=== PATIENT | female | born 1995 | race African-American/Black ===

== ENCOUNTER 2017-07-04 09:06 | Emergency (ER) | payer BC, MEDICAID ==
--- NOTE | 2017-07-04 11:08 | PD ---
HPI Chief Complaint Nausea, vomiting, diarrhea Travel History International Travel<30 Days: No Contact w/Intl Traveler<30Days: No Known Affected Area: No History of Present Illness HPI 21-year-old , IUP at 36.2 care complicated by obesity. The patient reports complaining of the acute onset of nausea, vomiting, and diarrhea at 6am. There are no alleviating factors and no attempted treatments. There are no aggravating factors. The patient denies ill contacts. She reports she had ribs for dinner last night and denies the recent ingestion of eggs, hamburger, or lettuce except a hamburger at [employer] yesterday for lunch. She denies any recent antibiotic use. She reports good movement. She denies any LOF or VB. She reports that since she arrived, she has noticed blood in the diarrhea. She denies any fever or chills. She reports associated abdominal cramping, but denies any regular or painful contractions. Addendum 1600: patient is feeling much better, has mild abdominal cramping but nausea and vomiting have resolved and she is able to tolerate a po challenge. Weeks Gestation: 36 Para: 0 : 1 History Past Medical History Narrative Medical Obesity Obstetric History Obstetric History Denies significant history Past Surgical History Surgical History: No Previous Surgery Family History Family History: Negative Social History Alcohol Use: No Tobacco Use: No Substance Abuse: No Allergies-Medications (Allergen,Severity, Reaction): Coded Allergies: No Known Allergies (Unverified , 03/27/15) Review of Systems Except as stated in HPI: all other systems reviewed are Neg Physical Exam Narrative GENERAL: Well-nourished, well-developed patient. SKIN: Warm and dry. HEAD: Normocephalic and atraumatic. EYES: No scleral icterus. No injection or drainage. ENT: No nasal drainage noted. Mucous membranes pink. Airway patent. NECK: Supple, trachea midline. No JVD. CARDIOVASCULAR: Regular rate and rhythm without murmurs, gallops, or rubs. RESPIRATORY: Breath sounds equal bilaterally. No accessory muscle use. BREASTS: Deferred ABDOMEN/GI: Abdomen soft, non-tender, bowel sounds present, no rebound, no guarding Gravid GENITOURINARY: External Genitalia: intact and normal in appearance. Normal EGBUS, no cervical or vaginal masses noted, Normal rugae, Physiologic discharge noted, no evidence of vaginal bleeding noted. SVE closed/50/high. No blood noted at rectum, in vagina, or on perineum FHT's: Heart tones are in the 130s with moderate long-term variability, good accelerations, and no decelerations noted with a category 1 heart rate tracing and reactive NST. EXTREMITIES: No cyanosis or edema. BACK: Nontender without obvious deformity. NEUROLOGICAL: Awake and alert. Motor and sensory grossly within normal limits. Normal speech. Musculoskeletal: grossly normal ROM, gait, muscle strength Psychiatric: grossly normal memory/affect Addendum 1600: patient had been unable to produce diarrhea stool until about 1430, results just became available a short time ago and are positive for hemoccult Data Data Orders Orders Vital Signs (Adult) .ON ADMISSION (07/04/17 11:04) ^ Labor Status (07/04/17 11:04) Urinalysis - C+S If Indicated (07/04/17 11:04) ^ Non Stress Test (07/04/17 11:04) Cbc No Diff, Includes Plts (07/04/17 11:04) Comprehensive Metabolic Panel (07/04/17 11:04) Magnesium (Mg) (07/04/17 11:05) D5-Lr (Bolus) Inj (07/04/17 11:15) Ondansetron Inj (Zofran Inj) (07/04/17 11:15) MDM Plan A/P: 1. IUP at 36.2 2. Nausea/vomiting: resolved with IVF and zofran, patient tolerated po challenge, strict N/V precautions. Normal electrolytes. so will check 3. Diarrhea: appears mucus admixed with blood, hemoccult positive, diarrhea decreased significantly since arrived without any diarrhea for 5+ hours; likely improving, although concerned due to blood/mucus so will check for enteric pathogens. The patient has no known exposure to eggs/lettuce/antibiotics and had one hamburger yesterday. Discussed with Dr. Baldwin who is in agreement with patient discharge at this time without further treatment. Strict diarrhea precautions. 4. well-being: reassuring testing with reactive NST and category 1 heart rate tracing. [facility] daily. 5. Mild leukocytosis: discussed with Dr. Baldwin, no fever/chills, fever/ chills precautions 6. No evidence of labor, strict labor precautions. 7. Follow up with primary OB in the am as scheduled or sooner if needed Diagnosis Diagnosis: Primary Impression: 34 weeks gestation of Additional Impressions: Nausea & vomiting Diarrhea Disposition: 01 DISCHARGE HOME Condition: Good Additional Instructions: F/U with Dr. Baldwin tomorrow morning as scheduled, sooner if needed. Return for fever/chills, persistent nausea/vomiting, repetitive bloody stools, or any other concerns. [facility] daily. Dara Perrin MD Jul 04, 2017 11:07
--- NOTE | 2017-07-04 11:09 | PD ---
History of Present Illness History of Present Illness NST report Indications: IUP at 36.2, nausea/vomiting/diarrhea, obesity heart rate: heart rate in the 130s with moderate long-term variability, good accelerations, no decelerations noted. The patient has a reactive NST and a category 1 heart rate tracing. Follow-up: Follow-up as clinically indicated Final diagnosis: IUP at 36.2, nausea/vomiting/diarrhea, symptomatically improved Dara Perrin MD Jul 04, 2017 11:09
[2017-07-04] MEDS ORDERED: DEXTROSE 5%-LACTATED RING INJ 1,000 ML IV ONE (11:15)
[2017-07-04] MEDS ORDERED: ONDANSETRON HCL 4 MG/2 ML VIAL IV PUSH ONE (11:15)
[2017-07-04 12:09] LABS: BACTERIA, URINE MOD /hpf; BILIRUBIN, URINE NEG (NEG); BLOOD, URINE NEG (NEG); CALCIUM OXALATE CRYSTALS,URINE RARE /hpf; GLUCOSE,URINE TRACE mg/dL (NEG); KETONE, URINE NEG (NEG); MUCUS URINE FEW /lpf (OCC); NITRITE,URINE NEG (NEG); PH, URINE 5.5 (5.0-8.5); SQUAMOUS EPITHELIAL CELL URINE 3 /hpf (0-5); URINE COLOR YELLOW (YELLW/STRAW); URINE LEUKOCYTE ESTERASE NEG (NEG)
[2017-07-04 12:15] LABS: HEMATOCRIT 35.1 % (35.0-46.0); HEMOGLOBIN 11.1 GM/DL (11.6-15.3); MEAN CELL VOLUME 73.9 FL (80.0-100.0); MEAN CORPUSCULAR HEMOGLOBIN 23.4 PG (27.0-34.0); MEAN CORPUSCULAR HGB CONC 31.6 % (32.0-36.0); MEAN PLATELET VOLUME 8.9 FL (7.0-11.0); PLATELET COUNT 290 TH/MM3 (150-450); RED BLOOD COUNT 4.75 MIL/MM3 (4.00-5.30); RED CELL DISTRIBUTION WIDTH 15.9 % (11.6-17.2); WHITE BLOOD COUNT 15.7 TH/MM3 (4.0-11.0)
[2017-07-04 12:37] LABS: ALBUMIN 2.6 GM/DL (3.4-5.0); ALT (GPT) 20 U/L (9-42); AST (GOT) 13 U/L (16-38); BICARBONATE 23.7 MEQ/L (21.0-32.0); BLOOD UREA NITROGEN 9 MG/DL (7-18); CALCIUM 8.5 MG/DL (8.5-10.1); CHLORIDE 108 MEQ/L (98-107); CREATININE 0.72 MG/DL (0.50-1.00); GLOMERULAR FILTRATION RATE 125 ML/MIN (>89); GLUCOSE,RANDOM 100 MG/DL (74-106); SODIUM (NA) 140 MEQ/L (136-145)
[2017-07-04 12:39] LABS: ALKALINE PHOSPHATASE 145 U/L (45-117); TOTAL BILIRUBIN ADULT 0.4 MG/DL (0.2-1.0); TOTAL PROTEIN 6.7 GM/DL (6.4-8.2)
[2017-07-04 12:51] VITALS: RESP 17
== END 2017-07-04 16:24 | disposition home or self-care (01) ==
LOC: HOBED 09:06
DX: O26.893 Other specified pregnancy related conditions, third trimester (principal); R11.2 Nausea with vomiting, unspecified; R19.7 Diarrhea, unspecified; R82.99 Other abnormal findings in urine; O99.213 Obesity complicating pregnancy, third trimester; Z3A.36 36 weeks gestation of pregnancy
CPT/HCPCS: 59025; 80053; 81001; 82272; 83735; 85027; 87086; 87205; 87506; 96361; 96365; 96375; 99284; J2405; J7121

== ENCOUNTER 2017-07-20 00:50 | Emergency (ER) | payer BC, MEDICAID ==
--- NOTE | 2017-07-20 01:28 | PD ---
HPI Chief Complaint Contractions Date Seen: July 20, 2017 Time Seen: 01:25 Travel History International Travel<30 Days: No Contact w/Intl Traveler<30Days: No Known Affected Area: No History of Present Illness HPI 22-year-old who is at 38 weeks gestation came to the hospital complaining of contractions for the past hour but they have since completely resolved. Patient states that she denies vaginal discharge, rupture membranes, or vaginal bleeding. She has had good movement and her last examination was stated before yesterday when she was noted to be 3 cm. Weeks Gestation: 38 Para: 0 : 1 History Past Medical History Medical History: Denies Significant Hx Past Surgical History Surgical History: No Previous Surgery Family History Family History: Negative Social History Alcohol Use: No Tobacco Use: No Substance Abuse: No Allergies-Medications (Allergen,Severity, Reaction): Coded Allergies: No Known Allergies (Unverified , 03/27/15) Review of Systems Except as stated in HPI: all other systems reviewed are Neg Physical Exam Narrative GENERAL: Well-nourished, well-developed patient. SKIN: Warm and dry. HEAD: Normocephalic and atraumatic. EYES: No scleral icterus. No injection or drainage. ENT: No nasal drainage noted. Mucous membranes pink. Airway patent. NECK: Supple, trachea midline. No JVD. CARDIOVASCULAR: Regular rate and rhythm without murmurs, gallops, or rubs. RESPIRATORY: Breath sounds equal bilaterally. No accessory muscle use. ABDOMEN/GI: Abdomen soft, non-tender, bowel sounds present, no rebound, no guarding Gravid to [38-] weeks size Fundal Height: [-] GENITOURINARY: External Genitalia: intact and normal in appearance BUS glands: [-Normal] Cervix: [-Posterior] Dilatation: [2-3-] Effacement: [-50] Station: [-High] Presentation: [-Vertex] Membranes: [intact or ruptured] intact Uterine Contractions: [-] 1 contraction since arrival FHT's: Category: [-] 1 Baseline: [-] 140 Reactive: [-] Moderate Variability: [-] Moderate Decels: [-] Absent EXTREMITIES: No cyanosis or edema. BACK: Nontender without obvious deformity. No CVA tenderness. NEUROLOGICAL: Awake and alert. Motor and sensory grossly within normal limits. Five out of 5 muscle strength in all muscle groups. Normal speech. Data Data Vital Signs Reviewed: Yes MDM Medical Record Reviewed: Yes Plan 22-year-old who is at 38 weeks gestation with false labor No contractions presently Discharge home with follow-up to her OB provider Diagnosis Diagnosis: Primary Impression: 38 weeks gestation of Additional Impression: False labor after 37 completed weeks of gestation Disposition: 01 DISCHARGE HOME Bonnie Mason MD July 20, 2017 01:28
== END 2017-07-20 01:40 | disposition home or self-care (01) ==
LOC: HOBED 00:50
DX: O47.1 False labor at or after 37 completed weeks of gestation (principal); Z3A.38 38 weeks gestation of pregnancy
CPT/HCPCS: 59025

== ENCOUNTER 2017-07-24 08:44 | Emergency (ER) | payer BC, MEDICAID ==
--- NOTE | 2017-07-24 09:19 | PD ---
HPI Chief Complaint Contractions Date Seen: July 24, 2017 Time Seen: 09:14 Travel History International Travel<30 Days: No Contact w/Intl Traveler<30Days: No Known Affected Area: No History of Present Illness HPI Patient is 22-year-old black female at [address] Pat for care and presents complaining of contraction pain, no bleeding, no leakage of fluid. NST is reactive. She is jill about every 5-6 minutes Weeks Gestation: 39 Para: 0 : 1 History Social History Alcohol Use: No Tobacco Use: No Substance Abuse: No Allergies-Medications (Allergen,Severity, Reaction): Coded Allergies: No Known Allergies (Unverified , 03/27/15) Review of Systems General / Constitutional: No: Fever, Weight Gain, Chills, Other Eyes: No: Diploplia, Blurred Vision, Visual changes, Pain, Photophobia HENT: No: Headaches, Vertigo, Lightheadedness Cardiovascular: No: Irregular Rhythm, Chest Pain or Discomfort, Palpitations, Tachycardia, Syncope, Varicosities, Edema, Cyanosis Respiratory: No: Cough, Short of Breath, Other Gastrointestinal: No: Nausea, Vomiting, Diarrhea Genitourinary: No: Decreased Urinary Output, Oliguria Musculoskeletal: No: Limited ROM, Weakness, Cramping, Edema, Pain Skin: No Rash, No Itching, No Dryness, No Lumps, No Change in Pigmentation, No Change in Nails, No Alopecia, No Lesions Neurologic: No: Weakness, Dizziness, Syncope, Focal Abnormalities, Coordination Problem, Headache, Slurred Speech, Seizures Psychiatric: No: Depression, Suicidal Ideations, Homicidal Ideation Endocrine: No: Heat Intolerance, Cold Intolerance, Polydipsia, Polyuria, Other Physical Exam Narrative GENERAL: Well-nourished, well-developed patient. SKIN: Warm and dry. HEAD: Normocephalic and atraumatic. EYES: No scleral icterus. No injection or drainage. ENT: No nasal drainage noted. Mucous membranes pink. Airway patent. NECK: Supple, trachea midline. No JVD. CARDIOVASCULAR: Regular rate and rhythm without murmurs, gallops, or rubs. RESPIRATORY: Breath sounds equal bilaterally. No accessory muscle use. BREASTS: Bilateral exam showed no masses , no retractions, no nipple discharge. ABDOMEN/GI: Abdomen soft, non-tender, bowel sounds present, no rebound, no guarding Gravid to [39-] weeks size Fundal Height: [39-] GENITOURINARY: External Genitalia: intact and normal in appearance BUS glands: [-] Cervix: [post-] Dilatation: [1-] Effacement: [60-] Station: [-3] Presentation: [-vtx] Membranes: [intact ] Uterine Contractions: [q 5 min-] FHT's: Category: [1-] Baseline: [-133] Reactive: [-R] Variability: [mod-] Decels: [-0] EXTREMITIES: No cyanosis or edema. BACK: Nontender without obvious deformity. No CVA tenderness. NEUROLOGICAL: Awake and alert. Motor and sensory grossly within normal limits. Five out of 5 muscle strength in all muscle groups. Normal speech. Data Data Group B Strep: Negative MDM Interpretation(s) Patient is a 22-year-old black female at 39 weeks presents with contractions, no bleeding, no leakage, heart rate tracing is reactive she is jill every 5 minutes. Cervix is 1/60/-3/vertex Plan Plan to discharge home to observation and return for increasing pain, bleeding, or leakage of fluid. Otherwise follow-up with her OB provider Dr. Pat Diagnosis Diagnosis: Primary Impression: Uterine contractions during Additional Impression: 39 weeks gestation of Disposition: DISCHARGE HOME Condition: Stable Donnie Martinez II, MD July 24, 2017 09:19
== END 2017-07-24 09:40 | disposition home or self-care (01) ==
LOC: HOBED 08:44
DX: O47.1 False labor at or after 37 completed weeks of gestation (principal); Z3A.39 39 weeks gestation of pregnancy
CPT/HCPCS: 59025